=== PATIENT | male | born 1955 | race Caucasian/White ===

== ENCOUNTER 2016-09-27 09:29 | Inpatient (IN) | payer MEDICAID ==
[~2016-09-27] VITALS: Ht 188 cm; Wt 82.0 kg
[~2016-09-27 09:29] MED LIST: AMIO100T4 PO; AMIO200T42 PO; ASPI325T4 PO; ATOR80TA75 PO; Amiodarone Hcl PO; BACI28.33 EXTCORP; CEFU500T50 PO; DIGO125T PO; DOXY-168 BC; DOXY100T PO; FLUT1AER INH; FLUT1BLS INH; FURO20TA3 PO; LISI-167 PO; METO25TA35 PO; METO50TA82 PO; PRED-402 PO; RIVA20TA PO; STATIN PO
[2016-09-27] MEDS ORDERED: DILTIAZEM 5 MG/ML, 5ML IVPush STA (09:32)
[2016-09-27] MEDS ORDERED: DILTIAZEM 5 MG/ML, 5ML ONE ×2 (09:37→10:57)
[2016-09-27] MEDS ORDERED: AMIO400T4 PO (09:48)
[2016-09-27] MEDS ORDERED: ACETAMINOPHEN 500 MG TABLET ONE ×2 (09:48→10:16)
[2016-09-27] MEDS ORDERED: ASPIRIN 81 MG TABLET CHEW ONE ×2 (09:48→10:16)
[2016-09-27 10:00] LABS: DIFF TOTAL CELLS COUNTED 100 CELL DIFF
[2016-09-27] MEDS ORDERED: DILTIAZEM 125 MG in DEXTROSE 5% 100 ML IV SCH (10:00)
[2016-09-27] MEDS ORDERED: ACETAMINOPHEN 500 MG TABLET PO ONE (10:00)
[2016-09-27] MEDS ORDERED: SODIUM CHLORIDE FLUSH 10ML SYR IVF ONE (10:00)
[2016-09-27] MEDS ORDERED: ASPIRIN 81 MG TABLET CHEW PO ONE (10:00)
[2016-09-27 10:11] LABS: ASPARTATE AMINO TRANSFERASE 35 U/L (15-37); BLOOD UREA NITROGEN 10 mg/dL (7-18)
[2016-09-27 10:17] LABS: IS PT STATUS REG ER OR PRE ER? YES
[2016-09-27 10:23] LABS: ANISOCYTOSIS 1+; VERIFY COUNTS? YES
[2016-09-27] MEDS ORDERED: DILTIAZEM 5 MG/ML, 5ML IVPush ONE (11:00)
[2016-09-27] MEDS ORDERED: CEFTRIAXONE PMX 1GM/50ML 50 ML IV ONE ×2 (11:00→11:30)
[2016-09-27] MEDS ORDERED: CEFTRIAXONE PMX 1GM/50ML 50 ML ONE (11:14)
[2016-09-27] MEDS ORDERED: AMIODARONE 150 MG in DEXTROSE 5% 100 ML IV STA (11:24)
[2016-09-27] MEDS ORDERED: AMIODARONE 900 MG in DEXTROSE 5% 482 ML IV ONE (11:24)
[2016-09-27] MEDS ORDERED: SODIUM CHLORIDE 0.9% 1,000ML IVBOLUS ONE (11:30)
[2016-09-27] MEDS ORDERED: FILTER 0.22 MICRON IV ONE (11:30)
[2016-09-27] MEDS ORDERED: ENOXAPARIN 60 MG/0.6 ML ONE (11:50)
[2016-09-27] MEDS ORDERED: ENOXAPARIN 80 MG/0.8 ML SQ ONE (12:00)
[2016-09-27 15:16] VITALS: BP 101/67
[2016-09-27 15:18] VITALS: BP 101/67
[2016-09-27] MEDS ORDERED: DOCUSATE 100 MG CAPSULE PO PRN (17:30)
[2016-09-27] MEDS ORDERED: OXYcodone IR 5MG TABLET PO PRN (17:30)
[2016-09-27] MEDS ORDERED: BISACODYL 10 MG SUPP PR PRN (17:30)
[2016-09-27] MEDS ORDERED: ENALAPRILAT 1.25 MG/ML, 2ML IVPush PRN ×2 (17:30→17:58)
[2016-09-27] MEDS ORDERED: ONDANSETRON 2MG/ML, 2ML IVPush PRN (17:30)
[2016-09-27] MEDS ORDERED: morphine SULFATE 10 MG/ML, 1ML IVPush PRN (17:30)
[2016-09-27] MEDS ORDERED: POLYETHYLENE GLYCOL 17 GM PACKET PO PRN (17:30)
[2016-09-27] MEDS ORDERED: FLUTICASONE/VILANTEROL 200-25MCG/INH INH SCH (18:00)
[2016-09-27] MEDS: NICOTINE 7 MG/24 HR PATCH.TD24 TD SCH (18:09)
[2016-09-27] MEDS: FUROSEMIDE 20 MG/2 ML IV SCH (18:10)
[2016-09-27] MEDS: METOPROLOL TARTRATE 50 MG TABLET PO SCH ×2 (18:10→21:31)
[2016-09-27] MEDS: AMPICILLIN/SULBACTAM 3 GM in SODIUM CHLORIDE 0.9% 100 ML IV SCH ×2 (18:10→23:25)
[2016-09-27 20:23] VITALS: BP 99/59
[2016-09-27] MEDS: LISINOPRIL 10 MG TABLET PO SCH (21:30)
[2016-09-27] MEDS: HEPARIN 5,000 UNITS/ML, 1ML SQ SCH (21:32)
[2016-09-27] MEDS: ATORVASTATIN 80 MG TABLET PO SCH (21:32)
[2016-09-28 03:22] VITALS: BP 94/59
[2016-09-28 06:01] LABS: DIFF TOTAL CELLS COUNTED 100 CELL DIFF
[2016-09-28 06:03] LABS: ANISOCYTOSIS 1+; VERIFY COUNTS? YES
[2016-09-28] MEDS: HEPARIN 5,000 UNITS/ML, 1ML SQ SCH ×3 (06:15→21:12)
[2016-09-28] MEDS: ASPIRIN 325 MG TABLET PO SCH (06:15)
[2016-09-28] MEDS: AMPICILLIN/SULBACTAM 3 GM in SODIUM CHLORIDE 0.9% 100 ML IV SCH ×4 (06:15→23:10)
[2016-09-28 06:36] LABS: BLOOD UREA NITROGEN 13 mg/dL (7-18)
[2016-09-28 06:39] LABS: ASPARTATE AMINO TRANSFERASE 26 U/L (15-37)
[2016-09-28 07:10] VITALS: BP 122/72
[2016-09-28] MEDS ORDERED: POTASSIUM CHLORIDE 20 MEQ TAB.ER.PRT PO ONE (08:30)
[2016-09-28] MEDS: FUROSEMIDE 20 MG/2 ML IV SCH (08:54)
[2016-09-28] MEDS: DEXAMETHASONE 4 MG/ML, 1ML IV SCH ×3 (08:54→21:12)
[2016-09-28] MEDS: DIGOXIN 0.125 MG TABLET PO SCH (08:55)
[2016-09-28] MEDS: METOPROLOL TARTRATE 50 MG TABLET PO SCH ×3 (08:55→21:11)
[2016-09-28] MEDS: LISINOPRIL 10 MG TABLET PO SCH ×2 (08:55→21:11)
[2016-09-28] MEDS: MAGNESIUM CHLORIDE 64 MG TABLET.DR PO SCH (12:38)
[2016-09-28 12:55] VITALS: BP 121/74
[2016-09-28] MEDS: FLUTICASONE/VILANTEROL 100-25MCG/INH INH SCH (14:41)
[2016-09-28] MEDS: NICOTINE 7 MG/24 HR PATCH.TD24 TD SCH (16:14)
[2016-09-28] MEDS: POTASSIUM CHLORIDE 20 MEQ TAB.ER.PRT PO SCH (16:31)
[2016-09-28 20:25] VITALS: BP 143/75
[2016-09-28 20:54] VITALS: BP 130/68
[2016-09-28] MEDS: ATORVASTATIN 80 MG TABLET PO SCH (21:11)
[2016-09-29 02:48] VITALS: BP 143/88
[2016-09-29] MEDS: ASPIRIN 325 MG TABLET PO SCH (05:27)
[2016-09-29] MEDS: HEPARIN 5,000 UNITS/ML, 1ML SQ SCH ×3 (05:28→21:55)
[2016-09-29] MEDS: AMPICILLIN/SULBACTAM 3 GM in SODIUM CHLORIDE 0.9% 100 ML IV SCH ×4 (05:28→22:07)
[2016-09-29 06:52] VITALS: BP 154/93
[2016-09-29] MEDS: FLUTICASONE/VILANTEROL 100-25MCG/INH INH SCH (07:41)
[2016-09-29] MEDS: DIGOXIN 0.125 MG TABLET PO SCH (07:42)
[2016-09-29] MEDS: METOPROLOL TARTRATE 50 MG TABLET PO SCH ×3 (07:42→21:53)
[2016-09-29] MEDS: LISINOPRIL 10 MG TABLET PO SCH ×2 (07:42→21:53)
[2016-09-29] MEDS: MAGNESIUM CHLORIDE 64 MG TABLET.DR PO SCH (07:42)
[2016-09-29] MEDS: FUROSEMIDE 20 MG/2 ML IV SCH (07:43)
[2016-09-29] MEDS ORDERED: ERGOCALCIFEROL 50,000 UNIT CAPSULE PO SCH (09:00)
[2016-09-29 14:15] VITALS: BP 104/68
[2016-09-29] MEDS: NICOTINE 7 MG/24 HR PATCH.TD24 TD SCH (16:59)
[2016-09-29] MEDS: POTASSIUM CHLORIDE 20 MEQ TAB.ER.PRT PO SCH (16:59)
[2016-09-29 18:47] VITALS: BP 134/71
[2016-09-29 21:50] VITALS: BP 128/84
[2016-09-29] MEDS: ATORVASTATIN 80 MG TABLET PO SCH (21:52)
[2016-09-30 02:11] VITALS: BP 156/89
[2016-09-30 05:57] LABS: BLOOD UREA NITROGEN 17 mg/dL (7-18)
[2016-09-30] MEDS: ASPIRIN 325 MG TABLET PO SCH (06:12)
[2016-09-30] MEDS: AMPICILLIN/SULBACTAM 3 GM in SODIUM CHLORIDE 0.9% 100 ML IV SCH ×4 (06:12→23:12)
[2016-09-30] MEDS: HEPARIN 5,000 UNITS/ML, 1ML SQ SCH ×3 (06:12→23:12)
[2016-09-30 09:17] VITALS: BP 159/82
[2016-09-30] MEDS: FUROSEMIDE 20 MG/2 ML IV SCH (09:31)
[2016-09-30] MEDS: MAGNESIUM CHLORIDE 64 MG TABLET.DR PO SCH (09:32)
[2016-09-30] MEDS: FLUTICASONE/VILANTEROL 100-25MCG/INH INH SCH (09:32)
[2016-09-30] MEDS: LISINOPRIL 10 MG TABLET PO SCH ×2 (09:33→20:12)
[2016-09-30] MEDS: DIGOXIN 0.125 MG TABLET PO SCH (09:33)
[2016-09-30] MEDS: METOPROLOL TARTRATE 50 MG TABLET PO SCH ×3 (09:37→20:13)
[2016-09-30] MEDS ORDERED: MAGNESIUM SULFATE PMX 2GM/50ML 50 ML IV ONE (11:00)
[2016-09-30 13:42] VITALS: BP 132/89
[2016-09-30 17:15] VITALS: BP 150/84
[2016-09-30] MEDS: POTASSIUM CHLORIDE 20 MEQ TAB.ER.PRT PO SCH (17:16)
[2016-09-30] MEDS: NICOTINE 7 MG/24 HR PATCH.TD24 TD SCH (17:18)
[2016-09-30 20:00] VITALS: BP 135/96
[2016-09-30] MEDS: ATORVASTATIN 80 MG TABLET PO SCH (20:12)
[2016-10-01] VITALS (8 sets, daily range): BP systolic 136–174; BP diastolic 94–105
[2016-10-01] MEDS: hydrALAzine 20 MG/ML, 1ML IVPush PRN (04:05)
[2016-10-01] MEDS: ASPIRIN 325 MG TABLET PO SCH (05:22)
[2016-10-01] MEDS: HEPARIN 5,000 UNITS/ML, 1ML SQ SCH ×3 (05:22→20:36)
[2016-10-01] MEDS: AMPICILLIN/SULBACTAM 3 GM in SODIUM CHLORIDE 0.9% 100 ML IV SCH ×4 (05:22→23:44)
[2016-10-01 05:56] LABS: BLOOD UREA NITROGEN 18 mg/dL (7-18)
[2016-10-01] MEDS: FUROSEMIDE 20 MG/2 ML IV SCH (07:14)
[2016-10-01] MEDS: FLUTICASONE/VILANTEROL 100-25MCG/INH INH SCH (07:15)
[2016-10-01] MEDS: MAGNESIUM CHLORIDE 64 MG TABLET.DR PO SCH ×4 (07:16→20:36)
[2016-10-01] MEDS: METOPROLOL TARTRATE 50 MG TABLET PO SCH ×3 (07:16→20:35)
[2016-10-01] MEDS: LISINOPRIL 10 MG TABLET PO SCH ×2 (07:17→20:35)
[2016-10-01] MEDS: DIGOXIN 0.125 MG TABLET PO SCH (07:17)
[2016-10-01] MEDS: AMIODARONE 200 MG TABLET PO SCH (10:09)
[2016-10-01] MEDS: NICOTINE 7 MG/24 HR PATCH.TD24 TD SCH (17:09)
[2016-10-01] MEDS: POTASSIUM CHLORIDE 20 MEQ TAB.ER.PRT PO SCH (17:10)
[2016-10-01] MEDS: ATORVASTATIN 80 MG TABLET PO SCH (20:36)
[2016-10-01] MEDS: ACETAMINOPHEN 325 MG TABLET PO PRN (23:58)
[2016-10-02 00:54] VITALS: BP 189/99
[2016-10-02] MEDS: hydrALAzine 20 MG/ML, 1ML IVPush PRN (01:03)
[2016-10-02 01:37] VITALS: BP 160/73
[2016-10-02] MEDS: ASPIRIN 325 MG TABLET PO SCH (05:52)
[2016-10-02] MEDS: HEPARIN 5,000 UNITS/ML, 1ML SQ SCH ×2 (05:53→14:00)
[2016-10-02] MEDS: AMPICILLIN/SULBACTAM 3 GM in SODIUM CHLORIDE 0.9% 100 ML IV SCH ×2 (05:53→11:38)
[2016-10-02] MEDS: ACETAMINOPHEN 325 MG TABLET PO PRN (07:05)
[2016-10-02 07:20] VITALS: BP_SYST 164; BP_SYST 176; BP_DIAS 107; BP_DIAS 112
[2016-10-02] MEDS: FLUTICASONE/VILANTEROL 100-25MCG/INH INH SCH (07:51)
[2016-10-02] MEDS: FUROSEMIDE 20 MG/2 ML IV SCH (07:51)
[2016-10-02] MEDS: LISINOPRIL 10 MG TABLET PO SCH (07:51)
[2016-10-02] MEDS: AMIODARONE 200 MG TABLET PO SCH (07:51)
[2016-10-02] MEDS: METOPROLOL TARTRATE 50 MG TABLET PO SCH (07:51)
[2016-10-02] MEDS: MAGNESIUM CHLORIDE 64 MG TABLET.DR PO SCH (07:51)
[2016-10-02] MEDS: DIGOXIN 0.125 MG TABLET PO SCH (07:52)
[2016-10-02 14:14] VITALS: BP 146/86
[2016-10-02] MEDS ORDERED: ERGO500017 PO (14:29)
[2016-10-02] MEDS ORDERED: LISI-170 PO (14:29)
[2016-10-02] MEDS ORDERED: AMOX1TAB64 PO (14:29)
[2016-10-02] MEDS ORDERED: POTA20TA14 PO (14:29)
[2016-10-02] MEDS ORDERED: FURO40TA6 PO (14:29)
[2016-10-02] MEDS ORDERED: MAGN64TA9 PO (14:29)
[2016-10-02] MEDS ORDERED: LISINOPRIL 20 MG TABLET PO SCH (21:00)
== END 2016-10-02 15:55 | disposition home or self-care (01) | DRG 308 ==
LOC: ED 12:30 → EDIP 14:07 → 5SO 15:04
PROVIDERS: ADMIT Hospitalist; ATTEND Hospitalist
DX: I48.2 Chronic atrial fibrillation (principal); I50.33 Acute on chronic diastolic (congestive) heart failure; D68.69 Other thrombophilia; L03.116 Cellulitis of left lower limb; I11.0 Hypertensive heart disease with heart failure; F17.210 Nicotine dependence, cigarettes, uncomplicated; J44.9 Chronic obstructive pulmonary disease, unspecified; Z59.0 Homelessness; Z91.14 Patient's other noncompliance with medication regimen; Z91.19 Patient's noncompliance with other medical treatment and regimen; Z79.82 Long term (current) use of aspirin; Z79.899 Other long term (current) drug therapy; Z88.8 Allergy status to other drugs, medicaments and biological substances; Z71.6 Tobacco abuse counseling
CPT/HCPCS: 36415; 71010; 76700; 80048; 80053; 80061; 80162; 81001; 82306; 82607; 83036; 83605; 83735; 83880; 84439; 84443; 84484; 85025; 85610; 87040; 93005; 93922; 96365; 96366; 96372; 96375; J0295; J0696; J1100; J1644; J1650; J0360; J1940; J3475; J7030

== ENCOUNTER 2017-03-02 13:03 | Inpatient (IN) | payer MEDICAID ==
[~2017-03-02] VITALS: Ht 188 cm; Wt 79.9 kg
[~2017-03-02 13:03] MED LIST changes: +AMIO400T4 PO; +AMOX1TAB64 PO; +ASPI325T17 PO; -ASPI325T4 PO; +ATOR-2 PO; -ATOR80TA75 PO; -DOXY-168 BC; +DOXY100T10 BC; +ERGO500017 PO; +FURO40TA6 PO; +LISI-170 PO; +MAGN64TA9 PO; +POTA20TA14 PO
[2017-03-02] MEDS ORDERED: DILTIAZEM 5 MG/ML, 5ML ONE (13:46)
[2017-03-02] MEDS ORDERED: DILTIAZEM 5 MG/ML, 5ML IV ONE (14:00)
[2017-03-02] MEDS ORDERED: SODIUM CHLORIDE FLUSH 10ML SYR IVF ONE (14:00)
[2017-03-02 14:11] LABS: HEMATOCRIT 40.6 % (39.2-51.8); WHITE BLOOD COUNT 9.7 x10^3/uL (3.4-10)
[2017-03-02 14:20] LABS: ASPARTATE AMINO TRANSFERASE 44 U/L (15-37); BLOOD UREA NITROGEN 13 mg/dL (7-18)
[2017-03-02 14:32] LABS: IS PT STATUS REG ER OR PRE ER? YES
[2017-03-02] MEDS ORDERED: DIGOXIN 0.25 MG/ML, 2ML IVPush ONE (16:00)
[2017-03-02] MEDS ORDERED: DIGOXIN 0.25 MG/ML, 2ML ONE (16:09)
[2017-03-02] MEDS ORDERED: CARV-39 PO (16:27)
[2017-03-02] MEDS ORDERED: DIGO250T PO (16:27)
[2017-03-02] MEDS ORDERED: LISI-167 PO (16:27)
[2017-03-02] MEDS ORDERED: ALBU18HF INH (16:27)
[2017-03-02] MEDS ORDERED: ATOR-2 PO (16:27)
[2017-03-02] MEDS ORDERED: POTA20TA14 PO (16:27)
[2017-03-02] MEDS ORDERED: FLUT1BLS INH (16:27)
[2017-03-02] MEDS ORDERED: MAGN400T7 PO (16:27)
[2017-03-02] MEDS ORDERED: WARF5TAB7 PO (16:27)
[2017-03-02] MEDS ORDERED: FURO20TA3 PO (16:27)
[2017-03-02] MEDS ORDERED: SPIR25TA3 PO (16:27)
[2017-03-02] MEDS ORDERED: ALBUTEROL SULFATE 2.5 MG/3 ML NPPB PRN (17:00)
[2017-03-02] MEDS ORDERED: POTASSIUM CHLORIDE 20 MEQ TAB.ER.PRT PO ONE (17:00)
[2017-03-02] MEDS ORDERED: DOCUSATE 100 MG CAPSULE PO PRN (17:00)
[2017-03-02] MEDS ORDERED: ENALAPRILAT 1.25 MG/ML, 2ML IVPush PRN (17:00)
[2017-03-02] MEDS ORDERED: ALBUTEROL HFA 90 MCG/SPRAY INH PRN (17:00)
[2017-03-02] MEDS ORDERED: POLYETHYLENE GLYCOL 17 GM PACKET PO PRN (17:00)
[2017-03-02] MEDS ORDERED: HYDROcodone/APAP 5/325 TABLET PO PRN (17:00)
[2017-03-02] MEDS ORDERED: ONDANSETRON 2MG/ML, 2ML IVPush PRN (17:00)
[2017-03-02] MEDS ORDERED: ACETAMINOPHEN 325 MG TABLET PO PRN (17:00)
[2017-03-02] MEDS ORDERED: BISACODYL 10 MG SUPP PR PRN (17:00)
[2017-03-02 18:25] VITALS: BP 189/115
[2017-03-02] MEDS ORDERED: WARFARIN 7.5 MG TABLET PO-COUM ONE (18:30)
[2017-03-02] MEDS: FUROSEMIDE 40 MG/4 ML IV SCH (18:45)
[2017-03-02] MEDS: ATORVASTATIN 80 MG TABLET PO SCH (20:46)
[2017-03-02] MEDS: MAGNESIUM OXIDE 400 MG TABLET PO SCH (20:46)
[2017-03-02] MEDS: DILTIAZEM 125 MG in SODIUM CHLORIDE 0.9% 100 ML IV PRN (20:49)
[2017-03-02] MEDS: FLUTICASONE/VILANTEROL 200-25MCG/INH INH SCH (21:00)
[2017-03-02] MEDS: SODIUM CHLORIDE FLUSH 10ML SYR IVF SCH (21:00)
[2017-03-03 02:26] VITALS: BP 145/87
[2017-03-03 04:57] LABS: HEMATOCRIT 39.2 % (39.2-51.8); HEMOGLOBIN 12.9 g/dL (13.7-18.0); WHITE BLOOD COUNT 8.9 x10^3/uL (3.4-10)
[2017-03-03 05:19] LABS: ASPARTATE AMINO TRANSFERASE 37 U/L (15-37); BLOOD UREA NITROGEN 7 mg/dL (7-18)
[2017-03-03 06:34] VITALS: BP 146/86
[2017-03-03] MEDS: FUROSEMIDE 40 MG/4 ML IV SCH ×2 (08:42→17:07)
[2017-03-03] MEDS: SODIUM CHLORIDE FLUSH 10ML SYR IVF SCH ×2 (08:42→21:40)
[2017-03-03] MEDS: THIAMINE 100MG TABLET PO SCH (08:43)
[2017-03-03] MEDS: MAGNESIUM OXIDE 400 MG TABLET PO SCH ×2 (08:43→21:40)
[2017-03-03] MEDS: FOLIC ACID 1 MG TABLET PO SCH (08:43)
[2017-03-03] MEDS: MULTIVITAMIN 1 TABLET PO SCH (08:43)
[2017-03-03] MEDS: DIGOXIN 0.25 MG TABLET PO SCH (08:43)
[2017-03-03] MEDS: FLUTICASONE/VILANTEROL 200-25MCG/INH INH SCH ×2 (08:44→21:00)
[2017-03-03] MEDS ORDERED: CARVEDILOL 25 MG TABLET PO SCH (09:00)
[2017-03-03] MEDS ORDERED: SPIRONOLACTONE 25 MG TABLET PO SCH (09:00)
[2017-03-03] MEDS ORDERED: LISINOPRIL 10 MG TABLET PO SCH (09:00)
[2017-03-03 11:55] VITALS: BP 90/57
[2017-03-03 15:00] VITALS: BP 110/60
[2017-03-03] MEDS ORDERED: WARFARIN 7.5 MG TABLET PO-COUM ONE (18:00)
[2017-03-03] MEDS: DILTIAZEM 125 MG in SODIUM CHLORIDE 0.9% 100 ML IV PRN (18:46)
[2017-03-03 20:05] VITALS: BP 99/62
[2017-03-03] MEDS: DILTIAZEM 120 MG CAP.ER.12H PO SCH (21:40)
[2017-03-03] MEDS: ATORVASTATIN 80 MG TABLET PO SCH (21:40)
[2017-03-04 03:27] VITALS: BP 136/81
[2017-03-04 07:19] VITALS: BP 123/74
[2017-03-04] MEDS: MULTIVITAMIN 1 TABLET PO SCH (08:36)
[2017-03-04] MEDS: FUROSEMIDE 40 MG/4 ML IV SCH ×2 (08:36→16:50)
[2017-03-04] MEDS: SODIUM CHLORIDE FLUSH 10ML SYR IVF SCH ×2 (08:36→21:20)
[2017-03-04] MEDS: THIAMINE 100MG TABLET PO SCH (08:36)
[2017-03-04] MEDS: CARVEDILOL 25 MG TABLET PO SCH (08:37)
[2017-03-04] MEDS: MAGNESIUM OXIDE 400 MG TABLET PO SCH ×2 (08:37→21:20)
[2017-03-04] MEDS: DIGOXIN 0.25 MG TABLET PO SCH (08:37)
[2017-03-04] MEDS: FOLIC ACID 1 MG TABLET PO SCH (08:37)
[2017-03-04] MEDS: LISINOPRIL 10 MG TABLET PO SCH (08:37)
[2017-03-04] MEDS: DILTIAZEM 120 MG CAP.ER.12H PO SCH ×2 (08:38→21:20)
[2017-03-04] MEDS: FLUTICASONE/VILANTEROL 200-25MCG/INH INH SCH ×2 (09:00→21:19)
[2017-03-04 10:00] VITALS: BP 90/52
[2017-03-04] MEDS: SPIRONOLACTONE 25 MG TABLET PO SCH (10:00)
[2017-03-04 12:47] VITALS: BP 93/59
[2017-03-04] MEDS ORDERED: WARFARIN 7.5 MG TABLET PO-COUM ONE (18:00)
[2017-03-04 20:00] VITALS: BP 94/56
[2017-03-04] MEDS: ATORVASTATIN 80 MG TABLET PO SCH (21:20)
[2017-03-05 03:10] VITALS: BP 98/63
[2017-03-05 07:38] VITALS: BP 98/59
[2017-03-05] MEDS: SODIUM CHLORIDE FLUSH 10ML SYR IVF SCH ×2 (09:00→21:57)
[2017-03-05] MEDS: FLUTICASONE/VILANTEROL 200-25MCG/INH INH SCH ×3 (09:00→21:56)
[2017-03-05] MEDS ORDERED: MAGNESIUM SULFATE PMX 4GM/100M 100 ML IV ONE (10:00)
[2017-03-05] MEDS: SPIRONOLACTONE 25 MG TABLET PO SCH (10:11)
[2017-03-05] MEDS: MULTIVITAMIN 1 TABLET PO SCH (10:12)
[2017-03-05] MEDS: FOLIC ACID 1 MG TABLET PO SCH (10:12)
[2017-03-05] MEDS: LISINOPRIL 10 MG TABLET PO SCH (10:12)
[2017-03-05] MEDS: MAGNESIUM OXIDE 400 MG TABLET PO SCH ×2 (10:12→21:56)
[2017-03-05] MEDS: CARVEDILOL 25 MG TABLET PO SCH (10:12)
[2017-03-05] MEDS: DIGOXIN 0.25 MG TABLET PO SCH (10:12)
[2017-03-05] MEDS: THIAMINE 100MG TABLET PO SCH (10:12)
[2017-03-05 10:16] VITALS: BP 124/87
[2017-03-05] MEDS ORDERED: ENALAPRILAT 1.25 MG/ML, 2ML IVPush PRN (11:00)
[2017-03-05 13:47] VITALS: BP 92/56
[2017-03-05] MEDS ORDERED: FUROSEMIDE 20 MG TABLET PO SCH (17:00)
[2017-03-05] MEDS ORDERED: WARFARIN 10 MG TABLET PO-COUM ONE (18:00)
[2017-03-05 20:30] VITALS: BP 117/69
[2017-03-05] MEDS: ATORVASTATIN 80 MG TABLET PO SCH (21:56)
[2017-03-06 02:57] VITALS: BP 115/79
[2017-03-06 08:13] VITALS: BP 123/84
[2017-03-06] MEDS: FLUTICASONE/VILANTEROL 200-25MCG/INH INH SCH ×2 (09:00→09:42)
[2017-03-06] MEDS ORDERED: DOXY100T PO (09:38)
[2017-03-06] MEDS: MULTIVITAMIN 1 TABLET PO SCH (09:41)
[2017-03-06] MEDS: MAGNESIUM OXIDE 400 MG TABLET PO SCH (09:41)
[2017-03-06] MEDS: CARVEDILOL 25 MG TABLET PO SCH (09:42)
[2017-03-06] MEDS: THIAMINE 100MG TABLET PO SCH (09:42)
[2017-03-06] MEDS: DIGOXIN 0.25 MG TABLET PO SCH (09:42)
[2017-03-06] MEDS: LISINOPRIL 10 MG TABLET PO SCH (09:42)
[2017-03-06] MEDS: FOLIC ACID 1 MG TABLET PO SCH (09:42)
[2017-03-06] MEDS: SPIRONOLACTONE 25 MG TABLET PO SCH (09:42)
[2017-03-06] MEDS: SODIUM CHLORIDE FLUSH 10ML SYR IVF SCH (09:43)
[2017-03-06 12:30] VITALS: BP 106/71
[2017-03-06] MEDS ORDERED: WARFARIN 10 MG TABLET PO-COUM ONE (18:00)
== END 2017-03-06 15:57 | disposition home or self-care (01) | DRG 292 ==
LOC: ED 16:31 → EDIP 16:32 → ED 17:04 → 5SO 18:18
PROVIDERS: ADMIT Internal Medicine; ATTEND Internal Medicine
DX: I11.0 Hypertensive heart disease with heart failure (principal); E44.0 Moderate protein-calorie malnutrition; D68.69 Other thrombophilia; R17 Unspecified jaundice; D53.9 Nutritional anemia, unspecified; I48.2 Chronic atrial fibrillation; I50.33 Acute on chronic diastolic (congestive) heart failure; E78.5 Hyperlipidemia, unspecified; F41.1 Generalized anxiety disorder; Z68.22 Body mass index [BMI] 22.0-22.9, adult; J44.9 Chronic obstructive pulmonary disease, unspecified; R09.02 Hypoxemia; Z59.0 Homelessness; Z87.891 Personal history of nicotine dependence; Z91.14 Patient's other noncompliance with medication regimen; Z91.19 Patient's noncompliance with other medical treatment and regimen
CPT/HCPCS: 36415; 71010; 71020; 80053; 80162; 83735; 83880; 84443; 84484; 85025; 85610; 85730; 93005; 96374; 96375; J1940; J1160; J3475

== ENCOUNTER 2017-05-09 13:58 | Emergency (ER) | payer MEDICAID ==
[~2017-05-09] VITALS: Ht 185.4 cm; Wt 83.1 kg
[~2017-05-09 13:58] MED LIST changes: +ALBU18HF INH; -AMIO400T4 PO; +AMIO400T5 PO; +CARV-39 PO; +DIGO250T PO; +MAGN400T7 PO; +SPIR25TA3 PO; +WARF5TAB7 PO
[2017-05-09] MEDS ORDERED: ALBUTEROL/IPRATROPIUM 2.5MG/0.5MG, 3 ML NPPB ONE (16:30)
[2017-05-09] MEDS ORDERED: ALBUTEROL/IPRATROPIUM 2.5MG/0.5MG, 3 ML ONE (17:23)
[2017-05-09 17:50] VITALS: BP 141/89
== END 2017-05-09 17:56 | disposition home or self-care (01) ==
LOC: ED 17:07
DX: J44.1 Chronic obstructive pulmonary disease with (acute) exacerbation (principal); I48.91 Unspecified atrial fibrillation; E78.5 Hyperlipidemia, unspecified; F17.200 Nicotine dependence, unspecified, uncomplicated
CPT/HCPCS: 71046; 93005; 94640; 99284; J7512

== ENCOUNTER 2017-05-10 12:00 | Inpatient (IN) | payer MEDICAID ==
[~2017-05-10] VITALS: Ht 185.4 cm; Wt 84.6 kg
[2017-05-10] MEDS ORDERED: DILTIAZEM 5 MG/ML, 5ML IV ONE (12:30)
[2017-05-10] MEDS ORDERED: SODIUM CHLORIDE 0.9% 1,000ML IVBOLUS ONE (12:30)
[2017-05-10] MEDS ORDERED: SODIUM CHLORIDE FLUSH 10ML SYR IVF ONE (12:30)
[2017-05-10] MEDS ORDERED: DILTIAZEM 5 MG/ML, 5ML ONE (12:48)
[2017-05-10 12:50] LABS: BASOPHILS # (AUTO) 0.03 x10^3/uL (0-0.1); BASOPHILS % (AUTO) 0 % (0-1); EOSINOPHILS # (AUTO) 0.02 x10^3/uL (0-0.4); EOSINOPHILS % (AUTO) 0 % (1-7); LYMPHOCYTES # (AUTO) 1.75 x10^3/uL (1-3.4); LYMPHOCYTES % (AUTO) 12 % (22-44); MD NO; MEAN CORPUSCULAR HEMOGLOBIN 32.1 pg (27.5-34.5); MEAN CORPUSCULAR HGB CONC 32.7 g/dL (33.2-36.2); MEAN PLATELET VOLUME 7.8 fL (7.4-10.4); MONOCYTES # (AUTO) 1.03 x10^3/uL (0.2-0.8); MONOCYTES % (AUTO) 7 % (2-9); NEUTROPHILS # (AUTO) 11.73 x10^3/uL (1.8-6.8); NEUTROPHILS % (AUTO) 81 % (42-75); PLATELET COUNT 308 x10^3/uL (130-400); RED BLOOD COUNT 4.12 x10^6/uL (4.38-5.82); RED CELL DISTRIBUTION WIDTH 16.5 % (9.4-14.8)
[2017-05-10 13:02] LABS: ALANINE AMINOTRANSFERASE 93 U/L (12-78); ALBUMIN 3.5 g/dL (3.4-5.0); ANION GAP 8 mmol/L (5-15); CALCIUM 8.9 mg/dL (8.5-10.1); CHLORIDE 105 mmol/L (98-107); CREATININE 0.77 mg/dL (0.7-1.3); INTERNATIONAL NORMALIZED RATIO 1.19 (0.93-1.1); PROTHROMBIN TIME 12.2 Seconds (9.6-11.5)
[2017-05-10 13:07] LABS: ALKALINE PHOSPHATASE 159 U/L (45-117); BILIRUBIN,TOTAL 0.7 mg/dL (0.2-1.0); TOTAL PROTEIN 7.1 g/dL (6.4-8.2); TROPONIN I < 0.015 ng/mL (0.000-0.045)
[2017-05-10] MEDS ORDERED: DILTIAZEM 60 MG TABLET ONE (14:29)
[2017-05-10] MEDS ORDERED: DILTIAZEM 60 MG TABLET PO ONE (14:30)
[2017-05-10] MEDS ORDERED: ALBUTEROL/IPRATROPIUM 2.5MG/0.5MG, 3 ML ONE ×2 (15:28→21:20)
[2017-05-10] MEDS ORDERED: POLYETHYLENE GLYCOL 17 GM PACKET PO PRN (15:30)
[2017-05-10] MEDS ORDERED: TEMPLATE NON-FORMULARY MED. (Albuterol Sulfate (Ventolin Hfa) 2 PUFFS) INH PRN (15:30)
[2017-05-10] MEDS ORDERED: ONDANSETRON 2MG/ML, 2ML IVPush PRN (15:30)
[2017-05-10] MEDS ORDERED: ONDANSETRON ODT 4 MG PO PRN (15:30)
[2017-05-10] MEDS ORDERED: morphine SULFATE 10 MG/ML, 1ML IVPush PRN (15:30)
[2017-05-10] MEDS ORDERED: LABETALOL 5MG/ML, 20ML IVPush PRN (15:30)
[2017-05-10 15:36] VITALS: BP 112/76
[2017-05-10 15:50] LABS: FREE T4 (FREE THYROXINE) 1.18 ng/dL (0.76-1.46); TROPONIN I < 0.015 ng/mL (0.000-0.045)
[2017-05-10] MEDS: ALBUTEROL/IPRATROPIUM 2.5MG/0.5MG, 3 ML NPPB PRN ×2 (15:55→21:22)
[2017-05-10] MEDS: SODIUM CHLORIDE 0.9% 1,000 ML IV SCH (16:19)
[2017-05-10] MEDS: AZITHROMYCIN 500 MG in SODIUM CHLORIDE 0.9% 250 ML IV SCH (16:19)
[2017-05-10] MEDS ORDERED: MAGNESIUM SULFATE PMX 4GM/100M 100 ML IV ONE (18:30)
[2017-05-10] MEDS ORDERED: ERGOCALCIFEROL 50,000 UNIT CAPSULE PO SCH (18:30)
[2017-05-10 18:56] VITALS: BP 109/59
[2017-05-10] MEDS ORDERED: WARFARIN 7.5 MG TABLET PO-COUM ONE (19:30)
[2017-05-10] MEDS: CARVEDILOL 25 MG TABLET PO SCH (20:45)
[2017-05-10] MEDS: ATORVASTATIN 80 MG TABLET PO SCH (20:45)
[2017-05-11 00:54] VITALS: BP 108/67
[2017-05-11 05:37] LABS: INTERNATIONAL NORMALIZED RATIO 1.24 (0.93-1.1); PROTHROMBIN TIME 12.7 Seconds (9.6-11.5)
[2017-05-11 05:38] LABS: BASOPHILS # (AUTO) 0.05 x10^3/uL (0-0.1); BASOPHILS % (AUTO) 1 % (0-1); EOSINOPHILS % (AUTO) 0 % (1-7); LYMPHOCYTES # (AUTO) 1.04 x10^3/uL (1-3.4); LYMPHOCYTES % (AUTO) 9 % (22-44); MD NO; MEAN CORPUSCULAR HEMOGLOBIN 32.1 pg (27.5-34.5); MEAN CORPUSCULAR HGB CONC 32.7 g/dL (33.2-36.2); MEAN CORPUSCULAR VOLUME 98.3 fL (81-97); MEAN PLATELET VOLUME 7.7 fL (7.4-10.4); MONOCYTES # (AUTO) 0.65 x10^3/uL (0.2-0.8); MONOCYTES % (AUTO) 6 % (2-9); NEUTROPHILS # (AUTO) 9.89 x10^3/uL (1.8-6.8); NEUTROPHILS % (AUTO) 85 % (42-75); PLATELET COUNT 273 x10^3/uL (130-400); RED BLOOD COUNT 3.86 x10^6/uL (4.38-5.82); RED CELL DISTRIBUTION WIDTH 16.7 % (9.4-14.8)
[2017-05-11 05:46] LABS: CHLORIDE 109 mmol/L (98-107)
[2017-05-11 05:55] LABS: ALANINE AMINOTRANSFERASE 81 U/L (12-78); ALBUMIN 3.2 g/dL (3.4-5.0); ALKALINE PHOSPHATASE 143 U/L (45-117); ANION GAP 7 mmol/L (5-15); BILIRUBIN,TOTAL 0.6 mg/dL (0.2-1.0); CALCIUM 8.2 mg/dL (8.5-10.1); CREATININE 0.69 mg/dL (0.7-1.3); TOTAL PROTEIN 6.9 g/dL (6.4-8.2)
[2017-05-11 06:18] LABS: MICROSCOPIC NOT IND
[2017-05-11 06:20] LABS: CULTURE INDICATED? NO
[2017-05-11 07:42] VITALS: BP 146/84
[2017-05-11] MEDS: SODIUM CHLORIDE 0.9% 1,000 ML IV SCH (08:00)
[2017-05-11] MEDS ORDERED: CARVEDILOL 25 MG TABLET PO SCH (09:00)
[2017-05-11] MEDS ORDERED: SPIRONOLACTONE 25 MG TABLET PO SCH (09:00)
[2017-05-11] MEDS ORDERED: LISINOPRIL 10 MG TABLET ONE (09:37)
[2017-05-11] MEDS ORDERED: SENNA/DOCUSATE TABLET ONE (09:37)
[2017-05-11] MEDS: THIAMINE 100MG TABLET PO SCH (09:42)
[2017-05-11] MEDS: FOLIC ACID 1 MG TABLET PO SCH (09:42)
[2017-05-11] MEDS: CARVEDILOL 25 MG TABLET PO SCH ×2 (09:42→21:05)
[2017-05-11] MEDS: DIGOXIN 0.25 MG TABLET PO SCH (09:42)
[2017-05-11] MEDS: SENNA/DOCUSATE TABLET PO SCH (09:42)
[2017-05-11] MEDS: LISINOPRIL 10 MG TABLET PO SCH (09:43)
[2017-05-11] MEDS: ALBUTEROL/IPRATROPIUM 2.5MG/0.5MG, 3 ML NPPB PRN ×2 (10:10→19:51)
[2017-05-11] MEDS ORDERED: ALBUTEROL/IPRATROPIUM 2.5MG/0.5MG, 3 ML ONE ×2 (10:11→19:35)
[2017-05-11 12:35] VITALS: BP 155/97
[2017-05-11] MEDS: AZITHROMYCIN 500 MG in SODIUM CHLORIDE 0.9% 250 ML IV SCH (15:44)
[2017-05-11] MEDS ORDERED: WARFARIN 7.5 MG TABLET PO-COUM ONE (18:00)
[2017-05-11 19:15] VITALS: BP 128/94
[2017-05-11] MEDS: ATORVASTATIN 80 MG TABLET PO SCH (21:04)
[2017-05-12 00:32] VITALS: BP 151/90
[2017-05-12] MEDS: ASPIRIN 81 MG TABLET EC PO SCH (06:02)
[2017-05-12 07:35] LABS: BASOPHILS # (AUTO) 0.09 x10^3/uL (0-0.1); BASOPHILS % (AUTO) 1 % (0-1); EOSINOPHILS # (AUTO) 0.07 x10^3/uL (0-0.4); EOSINOPHILS % (AUTO) 1 % (1-7); LYMPHOCYTES # (AUTO) 2.06 x10^3/uL (1-3.4); LYMPHOCYTES % (AUTO) 17 % (22-44); MD NO; MEAN CORPUSCULAR HEMOGLOBIN 32.2 pg (27.5-34.5); MEAN CORPUSCULAR HGB CONC 32.9 g/dL (33.2-36.2); MEAN CORPUSCULAR VOLUME 98.1 fL (81-97); MONOCYTES # (AUTO) 0.75 x10^3/uL (0.2-0.8); MONOCYTES % (AUTO) 6 % (2-9); NEUTROPHILS # (AUTO) 9.04 x10^3/uL (1.8-6.8); NEUTROPHILS % (AUTO) 75 % (42-75); PLATELET COUNT 286 x10^3/uL (130-400); RED BLOOD COUNT 4.17 x10^6/uL (4.38-5.82); RED CELL DISTRIBUTION WIDTH 16.6 % (9.4-14.8)
[2017-05-12 07:43] LABS: ALBUMIN 3.4 g/dL (3.4-5.0); ANION GAP 4 mmol/L (5-15); CALCIUM 8.7 mg/dL (8.5-10.1); CHLORIDE 108 mmol/L (98-107); CREATININE 0.64 mg/dL (0.7-1.3)
[2017-05-12] MEDS ORDERED: ALBUTEROL/IPRATROPIUM 2.5MG/0.5MG, 3 ML ONE ×2 (07:52→20:55)
[2017-05-12] MEDS: ALBUTEROL/IPRATROPIUM 2.5MG/0.5MG, 3 ML NPPB PRN ×3 (07:53→20:58)
[2017-05-12 08:34] LABS: INTERNATIONAL NORMALIZED RATIO 1.48 (0.93-1.1); PROTHROMBIN TIME 15.1 Seconds (9.6-11.5)
[2017-05-12 08:35] VITALS: BP 177/106
[2017-05-12] MEDS: SENNA/DOCUSATE TABLET PO SCH (09:00)
[2017-05-12] MEDS: CARVEDILOL 25 MG TABLET PO SCH ×2 (09:14→20:40)
[2017-05-12] MEDS: DIGOXIN 0.25 MG TABLET PO SCH (09:14)
[2017-05-12] MEDS: THIAMINE 100MG TABLET PO SCH (09:14)
[2017-05-12] MEDS: FOLIC ACID 1 MG TABLET PO SCH (09:14)
[2017-05-12] MEDS ORDERED: LISINOPRIL 10 MG TABLET ONE (09:17)
[2017-05-12] MEDS: LISINOPRIL 10 MG TABLET PO SCH (09:19)
[2017-05-12 12:57] VITALS: BP 137/79
[2017-05-12] MEDS: AZITHROMYCIN 500 MG in SODIUM CHLORIDE 0.9% 250 ML IV SCH (15:49)
[2017-05-12] MEDS ORDERED: WARFARIN 7.5 MG TABLET PO-COUM ONE (18:00)
[2017-05-12 20:17] VITALS: BP 150/98
[2017-05-12] MEDS: ATORVASTATIN 80 MG TABLET PO SCH (20:40)
[2017-05-13 03:30] VITALS: BP 153/103
[2017-05-13 04:53] LABS: BASOPHILS # (AUTO) 0.08 x10^3/uL (0-0.1); BASOPHILS % (AUTO) 1 % (0-1); EOSINOPHILS # (AUTO) 0.08 x10^3/uL (0-0.4); EOSINOPHILS % (AUTO) 1 % (1-7); INTERNATIONAL NORMALIZED RATIO 1.68 (0.93-1.1); LYMPHOCYTES % (AUTO) 17 % (22-44); MD NO; MEAN CORPUSCULAR HEMOGLOBIN 31.8 pg (27.5-34.5); MEAN CORPUSCULAR HGB CONC 32.3 g/dL (33.2-36.2); MEAN CORPUSCULAR VOLUME 98.3 fL (81-97); MEAN PLATELET VOLUME 8.1 fL (7.4-10.4); MONOCYTES # (AUTO) 0.96 x10^3/uL (0.2-0.8); MONOCYTES % (AUTO) 9 % (2-9); NEUTROPHILS # (AUTO) 8.05 x10^3/uL (1.8-6.8); NEUTROPHILS % (AUTO) 73 % (42-75); PLATELET COUNT 301 x10^3/uL (130-400); PROTHROMBIN TIME 17.1 Seconds (9.6-11.5); RED BLOOD COUNT 4.15 x10^6/uL (4.38-5.82); RED CELL DISTRIBUTION WIDTH 16.9 % (9.4-14.8)
[2017-05-13 05:16] LABS: ALANINE AMINOTRANSFERASE 53 U/L (12-78); ALBUMIN 3.1 g/dL (3.4-5.0); ANION GAP 4 mmol/L (5-15); CALCIUM 8.7 mg/dL (8.5-10.1); CHLORIDE 105 mmol/L (98-107); CREATININE 0.73 mg/dL (0.7-1.3)
[2017-05-13 05:18] LABS: ALKALINE PHOSPHATASE 126 U/L (45-117); BILIRUBIN,TOTAL 0.6 mg/dL (0.2-1.0); TOTAL PROTEIN 6.9 g/dL (6.4-8.2)
[2017-05-13] MEDS ORDERED: LABETALOL 5MG/ML, 20ML ONE (05:38)
[2017-05-13] MEDS: ASPIRIN 81 MG TABLET EC PO SCH (05:40)
[2017-05-13] MEDS ORDERED: ALBUTEROL/IPRATROPIUM 2.5MG/0.5MG, 3 ML ONE ×2 (06:21→13:52)
[2017-05-13] MEDS: ALBUTEROL/IPRATROPIUM 2.5MG/0.5MG, 3 ML NPPB PRN ×2 (07:22→20:53)
[2017-05-13] MEDS ORDERED: LISINOPRIL 10 MG TABLET ONE ×2 (08:02→09:01)
[2017-05-13 08:09] VITALS: BP 189/113
[2017-05-13] MEDS: FOLIC ACID 1 MG TABLET PO SCH (08:09)
[2017-05-13] MEDS: THIAMINE 100MG TABLET PO SCH (08:09)
[2017-05-13] MEDS: DIGOXIN 0.25 MG TABLET PO SCH (08:10)
[2017-05-13] MEDS: SENNA/DOCUSATE TABLET PO SCH (08:10)
[2017-05-13] MEDS: CARVEDILOL 25 MG TABLET PO SCH ×2 (08:10→20:32)
[2017-05-13] MEDS: LISINOPRIL 10 MG TABLET PO SCH ×3 (08:10→20:33)
[2017-05-13 08:51] VITALS: BP 183/125
[2017-05-13 10:03] VITALS: BP 134/86
[2017-05-13 14:10] VITALS: BP 120/75
[2017-05-13] MEDS: AZITHROMYCIN 500 MG in SODIUM CHLORIDE 0.9% 250 ML IV SCH (14:12)
[2017-05-13] MEDS ORDERED: WARFARIN 7.5 MG TABLET PO-COUM ONE (18:00)
[2017-05-13 19:21] VITALS: BP 130/84
[2017-05-13] MEDS: ATORVASTATIN 80 MG TABLET PO SCH (20:32)
[2017-05-14 03:20] VITALS: BP 156/95
[2017-05-14 05:35] LABS: INTERNATIONAL NORMALIZED RATIO 1.81 (0.93-1.1); PROTHROMBIN TIME 18.4 Seconds (9.6-11.5)
[2017-05-14] MEDS: ASPIRIN 81 MG TABLET EC PO SCH (05:45)
[2017-05-14 07:42] LABS: ALBUMIN 3.2 g/dL (3.4-5.0); ANION GAP 6 mmol/L (5-15); CALCIUM 8.8 mg/dL (8.5-10.1); CHLORIDE 104 mmol/L (98-107); CREATININE 0.67 mg/dL (0.7-1.3)
[2017-05-14] MEDS: ALBUTEROL/IPRATROPIUM 2.5MG/0.5MG, 3 ML NPPB PRN (08:30)
[2017-05-14] MEDS ORDERED: MAGNESIUM SULFATE PMX 2GM/50ML 50 ML IV ONE (08:30)
[2017-05-14 09:00] VITALS: BP 167/101
[2017-05-14] MEDS: LISINOPRIL 10 MG TABLET PO SCH ×2 (09:00→20:22)
[2017-05-14] MEDS: SENNA/DOCUSATE TABLET PO SCH (09:00)
[2017-05-14] MEDS: THIAMINE 100MG TABLET PO SCH (09:03)
[2017-05-14] MEDS: CARVEDILOL 25 MG TABLET PO SCH ×2 (09:03→20:22)
[2017-05-14] MEDS: DIGOXIN 0.25 MG TABLET PO SCH (09:03)
[2017-05-14] MEDS: FOLIC ACID 1 MG TABLET PO SCH (09:04)
[2017-05-14] MEDS: AMLODIPINE 2.5 MG TABLET PO SCH (10:06)
[2017-05-14 14:15] VITALS: BP 129/82
[2017-05-14] MEDS: AZITHROMYCIN 500 MG in SODIUM CHLORIDE 0.9% 250 ML IV SCH (16:52)
[2017-05-14] MEDS ORDERED: WARFARIN 3 MG TABLET PO-COUM ONE (18:00)
[2017-05-14 18:29] VITALS: BP 136/71
[2017-05-14] MEDS: ALBUTEROL/IPRATROPIUM 2.5MG/0.5MG, 3 ML NPPB SCH (19:54)
[2017-05-14] MEDS: ATORVASTATIN 80 MG TABLET PO SCH (20:22)
[2017-05-15 01:43] VITALS: BP 158/91
[2017-05-15] MEDS: ASPIRIN 81 MG TABLET EC PO SCH (05:33)
[2017-05-15 05:43] LABS: BASOPHILS # (AUTO) 0.04 x10^3/uL (0-0.1); BASOPHILS % (AUTO) 0 % (0-1); EOSINOPHILS # (AUTO) 0.11 x10^3/uL (0-0.4); EOSINOPHILS % (AUTO) 1 % (1-7); LYMPHOCYTES # (AUTO) 2.19 x10^3/uL (1-3.4); LYMPHOCYTES % (AUTO) 18 % (22-44); MD NO; MEAN CORPUSCULAR HEMOGLOBIN 32.1 pg (27.5-34.5); MEAN CORPUSCULAR HGB CONC 32.8 g/dL (33.2-36.2); MEAN CORPUSCULAR VOLUME 97.8 fL (81-97); MEAN PLATELET VOLUME 7.7 fL (7.4-10.4); MONOCYTES # (AUTO) 1.09 x10^3/uL (0.2-0.8); MONOCYTES % (AUTO) 9 % (2-9); NEUTROPHILS # (AUTO) 8.45 x10^3/uL (1.8-6.8); NEUTROPHILS % (AUTO) 71 % (42-75); PLATELET COUNT 331 x10^3/uL (130-400); RED BLOOD COUNT 4.24 x10^6/uL (4.38-5.82); RED CELL DISTRIBUTION WIDTH 16.6 % (9.4-14.8)
[2017-05-15 05:44] LABS: INTERNATIONAL NORMALIZED RATIO 1.91 (0.93-1.1); PROTHROMBIN TIME 19.4 Seconds (9.6-11.5)
[2017-05-15 05:49] LABS: ALBUMIN 3.3 g/dL (3.4-5.0); ANION GAP 8 mmol/L (5-15); CALCIUM 8.9 mg/dL (8.5-10.1); CHLORIDE 104 mmol/L (98-107)
[2017-05-15 05:51] LABS: CREATININE 0.64 mg/dL (0.7-1.3)
[2017-05-15] MEDS: ALBUTEROL/IPRATROPIUM 2.5MG/0.5MG, 3 ML NPPB SCH ×4 (07:05→20:20)
[2017-05-15 07:34] VITALS: BP 177/113
[2017-05-15] MEDS: AMLODIPINE 2.5 MG TABLET PO SCH (08:13)
[2017-05-15] MEDS: THIAMINE 100MG TABLET PO SCH (08:13)
[2017-05-15] MEDS: FOLIC ACID 1 MG TABLET PO SCH (08:13)
[2017-05-15] MEDS: DIGOXIN 0.25 MG TABLET PO SCH (08:14)
[2017-05-15] MEDS: CARVEDILOL 25 MG TABLET PO SCH ×2 (08:14→21:05)
[2017-05-15] MEDS: LISINOPRIL 10 MG TABLET PO SCH ×2 (08:15→21:06)
[2017-05-15] MEDS ORDERED: SENNA/DOCUSATE TABLET ONE (08:20)
[2017-05-15 08:21] VITALS: BP 153/94
[2017-05-15] MEDS: SENNA/DOCUSATE TABLET PO SCH (09:00)
[2017-05-15 13:39] VITALS: BP 108/74
[2017-05-15] MEDS: AZITHROMYCIN 500 MG in SODIUM CHLORIDE 0.9% 250 ML IV SCH (15:41)
[2017-05-15] MEDS ORDERED: WARFARIN 2 MG TABLET PO-COUM ONE (18:00)
[2017-05-15 21:02] VITALS: BP 124/78
[2017-05-15] MEDS: ATORVASTATIN 80 MG TABLET PO SCH (21:06)
[2017-05-16 03:59] VITALS: BP 158/82
[2017-05-16 05:38] LABS: INTERNATIONAL NORMALIZED RATIO 2.38 (0.93-1.1); PROTHROMBIN TIME 24.1 Seconds (9.6-11.5)
[2017-05-16] MEDS: ASPIRIN 81 MG TABLET EC PO SCH (06:14)
[2017-05-16] MEDS: LISINOPRIL 10 MG TABLET PO SCH (06:14)
[2017-05-16] MEDS: ALBUTEROL/IPRATROPIUM 2.5MG/0.5MG, 3 ML NPPB SCH ×3 (07:30→10:54)
[2017-05-16] MEDS ORDERED: PRED10TA PO (09:06)
[2017-05-16] MEDS ORDERED: ASPI-621 PO (09:06)
[2017-05-16] MEDS ORDERED: LISI-167 PO (09:06)
[2017-05-16] MEDS ORDERED: TIOT18CA INH (09:06)
[2017-05-16] MEDS ORDERED: ERGO500017 PO (09:06)
[2017-05-16] MEDS ORDERED: THIA100T6 PO (09:06)
[2017-05-16 09:32] VITALS: BP 153/82
[2017-05-16] MEDS: CARVEDILOL 25 MG TABLET PO SCH (09:34)
[2017-05-16] MEDS: THIAMINE 100MG TABLET PO SCH (09:34)
[2017-05-16] MEDS: AMLODIPINE 2.5 MG TABLET PO SCH (09:34)
[2017-05-16] MEDS: DIGOXIN 0.25 MG TABLET PO SCH (09:34)
[2017-05-16] MEDS: FOLIC ACID 1 MG TABLET PO SCH (09:35)
[2017-05-16] MEDS: SENNA/DOCUSATE TABLET PO SCH (09:35)
[2017-05-16] MEDS ORDERED: CARV-39 PO (09:49)
[2017-05-16 13:02] VITALS: BP 118/75
[2017-05-16] MEDS ORDERED: WARFARIN 3 MG TABLET PO-COUM ONE (18:00)
== END 2017-05-16 13:19 | disposition home or self-care (01) | DRG 191 ==
LOC: ED 12:30 → EDIP 14:17 → 5SO 15:16 → DCLOUNGE 16:10 → UNDODISIN 16:18 → 5SO 17:18 → 4NOR 05-14 10:56
PROVIDERS: ADMIT Hospitalist; ATTEND Hospitalist
DX: J44.1 Chronic obstructive pulmonary disease with (acute) exacerbation (principal); D68.69 Other thrombophilia; I27.20 Pulmonary hypertension, unspecified; I11.0 Hypertensive heart disease with heart failure; E11.65 Type 2 diabetes mellitus with hyperglycemia; I50.32 Chronic diastolic (congestive) heart failure; D64.9 Anemia, unspecified; D72.829 Elevated white blood cell count, unspecified; E55.9 Vitamin D deficiency, unspecified; E78.5 Hyperlipidemia, unspecified; F17.210 Nicotine dependence, cigarettes, uncomplicated; F41.1 Generalized anxiety disorder; I25.10 Atherosclerotic heart disease of native coronary artery without angina pectoris; I48.91 Unspecified atrial fibrillation; Z59.0 Homelessness; Z79.01 Long term (current) use of anticoagulants; Z79.899 Other long term (current) drug therapy; Z91.19 Patient's noncompliance with other medical treatment and regimen
CPT/HCPCS: 36415; 71045; 71046; 80048; 80053; 80162; 81003; 82040; 82306; 83605; 83690; 83735; 83880; 84100; 84439; 84484; 85025; 85610; 85730; 87040; 87070; 87205; 93005; 93306; 94640; 96361; 96374; J0456; J7620; J3475; J7030; J7050; J7512

== ENCOUNTER 2017-05-25 11:38 | Inpatient (IN) | payer MEDICAID ==
[~2017-05-25] VITALS: Ht 185.4 cm; Wt 82.8 kg
[~2017-05-25 11:38] MED LIST changes: +ASPI-621 PO; +PRED10TA PO; +THIA100T6 PO; +TIOT18CA INH
[2017-05-25] MEDS ORDERED: DILTIAZEM 125 MG in DEXTROSE 5% 100 ML IV SCH (12:07)
[2017-05-25] MEDS ORDERED: ASPIRIN 81 MG TABLET CHEW ONE (12:13)
[2017-05-25] MEDS ORDERED: DILTIAZEM 5 MG/ML, 5ML ONE (12:13)
[2017-05-25] MEDS ORDERED: SODIUM CHLORIDE FLUSH 10ML SYR IVF ONE (12:30)
[2017-05-25] MEDS ORDERED: ASPIRIN 81 MG TABLET CHEW PO ONE (12:30)
[2017-05-25] MEDS ORDERED: DILTIAZEM 5 MG/ML, 5ML IV ONE (12:30)
[2017-05-25 13:21] LABS: BASOPHILS # (AUTO) 0.08 x10^3/uL (0-0.1); BASOPHILS % (AUTO) 1 % (0-1); EOSINOPHILS # (AUTO) 0.15 x10^3/uL (0-0.4); EOSINOPHILS % (AUTO) 2 % (1-7); LYMPHOCYTES # (AUTO) 1.99 x10^3/uL (1-3.4); LYMPHOCYTES % (AUTO) 21 % (22-44); MD NO; MEAN CORPUSCULAR HEMOGLOBIN 31.9 pg (27.5-34.5); MEAN CORPUSCULAR HGB CONC 32.4 g/dL (33.2-36.2); MEAN CORPUSCULAR VOLUME 98.3 fL (81-97); MEAN PLATELET VOLUME 8.2 fL (7.4-10.4); MONOCYTES # (AUTO) 0.76 x10^3/uL (0.2-0.8); MONOCYTES % (AUTO) 8 % (2-9); NEUTROPHILS # (AUTO) 6.64 x10^3/uL (1.8-6.8); NEUTROPHILS % (AUTO) 69 % (42-75); PLATELET COUNT 263 x10^3/uL (130-400); RED BLOOD COUNT 4.31 x10^6/uL (4.38-5.82); RED CELL DISTRIBUTION WIDTH 16.9 % (9.4-14.8)
[2017-05-25 13:30] LABS: ALANINE AMINOTRANSFERASE 56 U/L (12-78); ANION GAP 8 mmol/L (5-15); CALCIUM 8.2 mg/dL (8.5-10.1); CHLORIDE 110 mmol/L (98-107); CREATININE 0.67 mg/dL (0.7-1.3); T4 (THYROXINE) 9.4 mcg/dL (4.5-12.1)
[2017-05-25 13:36] LABS: INTERNATIONAL NORMALIZED RATIO 1.17 (0.93-1.1)
[2017-05-25 13:40] LABS: ALKALINE PHOSPHATASE 125 U/L (45-117); BILIRUBIN,TOTAL 0.7 mg/dL (0.2-1.0); THYROID STIMULATING HORMONE 0.967 mIU/L (0.358-3.740); TOTAL PROTEIN 6.2 g/dL (6.4-8.2)
[2017-05-25] MEDS ORDERED: SODIUM CHLORIDE 0.9% 1,000 ML IV ONE (13:58)
[2017-05-25] MEDS ORDERED: SODIUM CHLORIDE FLUSH 10ML SYR IVF PRN (14:00)
[2017-05-25 15:30] VITALS: BP 91/51
[2017-05-25] MEDS: WARFARIN MODERAT DOSE PROTOCOL XX SCH (16:25)
[2017-05-25] MEDS ORDERED: ONDANSETRON ODT 4 MG PO PRN (16:30)
[2017-05-25] MEDS ORDERED: DILTIAZEM 5 MG/ML, 5ML IVPush PRN (16:30)
[2017-05-25] MEDS ORDERED: ERGOCALCIFEROL 50,000 UNIT CAPSULE PO SCH (16:30)
[2017-05-25] MEDS: ENOXAPARIN 40 MG/0.4 ML SQ SCH (16:48)
[2017-05-25] MEDS ORDERED: ALBUTEROL/IPRATROPIUM 2.5MG/0.5MG, 3 ML NPPB PRN (17:00)
[2017-05-25 17:03] VITALS: BP 126/77
[2017-05-25] MEDS ORDERED: WARFARIN 7.5 MG TABLET PO-COUM ONE (18:00)
[2017-05-25 18:10] LABS: TROPONIN I < 0.015 ng/mL (0.000-0.045)
[2017-05-25] MEDS: ALBUTEROL/IPRATROPIUM 2.5MG/0.5MG, 3 ML NPPB SCH (19:20)
[2017-05-25 19:45] VITALS: BP 136/87
[2017-05-25] MEDS: MAGNESIUM OXIDE 400 MG TABLET PO SCH (20:27)
[2017-05-25] MEDS: LISINOPRIL 20 MG TABLET PO SCH (20:28)
[2017-05-25] MEDS: CARVEDILOL 25 MG TABLET PO SCH (20:28)
[2017-05-25] MEDS: ATORVASTATIN 80 MG TABLET PO SCH (20:28)
[2017-05-25 22:49] LABS: TROPONIN I < 0.015 ng/mL (0.000-0.045)
[2017-05-26 03:31] VITALS: BP 135/91
[2017-05-26] MEDS: ASPIRIN 81 MG TABLET EC PO SCH (05:18)
[2017-05-26 05:54] LABS: BASOPHILS # (AUTO) 0.08 x10^3/uL (0-0.1); BASOPHILS % (AUTO) 1 % (0-1); EOSINOPHILS # (AUTO) 0.24 x10^3/uL (0-0.4); EOSINOPHILS % (AUTO) 4 % (1-7); LYMPHOCYTES # (AUTO) 1.67 x10^3/uL (1-3.4); LYMPHOCYTES % (AUTO) 25 % (22-44); MD NO; MEAN CORPUSCULAR HEMOGLOBIN 31.4 pg (27.5-34.5); MEAN CORPUSCULAR HGB CONC 32.3 g/dL (33.2-36.2); MEAN CORPUSCULAR VOLUME 97.3 fL (81-97); MONOCYTES # (AUTO) 0.69 x10^3/uL (0.2-0.8); MONOCYTES % (AUTO) 10 % (2-9); NEUTROPHILS # (AUTO) 3.94 x10^3/uL (1.8-6.8); NEUTROPHILS % (AUTO) 60 % (42-75); PLATELET COUNT 229 x10^3/uL (130-400); RED BLOOD COUNT 3.93 x10^6/uL (4.38-5.82)
[2017-05-26 05:58] LABS: INTERNATIONAL NORMALIZED RATIO 1.21 (0.93-1.1); PROTHROMBIN TIME 12.4 Seconds (9.6-11.5)
[2017-05-26 06:04] LABS: ANION GAP 6 mmol/L (5-15); CALCIUM 8.3 mg/dL (8.5-10.1); CHLORIDE 107 mmol/L (98-107)
[2017-05-26 06:16] LABS: ALANINE AMINOTRANSFERASE 52 U/L (12-78); ALKALINE PHOSPHATASE 132 U/L (45-117); CREATININE 0.67 mg/dL (0.7-1.3); TOTAL PROTEIN 6.1 g/dL (6.4-8.2)
[2017-05-26] MEDS: ALBUTEROL/IPRATROPIUM 2.5MG/0.5MG, 3 ML NPPB SCH ×3 (07:00→19:57)
[2017-05-26] MEDS: MAGNESIUM OXIDE 400 MG TABLET PO SCH ×2 (07:43→20:35)
[2017-05-26] MEDS: SPIRONOLACTONE 25 MG TABLET PO SCH (07:43)
[2017-05-26] MEDS: CARVEDILOL 25 MG TABLET PO SCH ×2 (07:43→20:35)
[2017-05-26] MEDS: LISINOPRIL 20 MG TABLET PO SCH ×2 (07:43→20:35)
[2017-05-26] MEDS: DIGOXIN 0.25 MG TABLET PO SCH (07:43)
[2017-05-26] MEDS: FUROSEMIDE 20 MG TABLET PO SCH (07:43)
[2017-05-26 09:00] VITALS: BP 153/97
[2017-05-26 09:18] VITALS: BP 193/116
[2017-05-26] MEDS: WARFARIN MODERAT DOSE PROTOCOL XX SCH (11:11)
[2017-05-26] MEDS ORDERED: DILTIAZEM 60 MG CAP.ER.12H PO SCH (11:30)
[2017-05-26 11:42] VITALS: BP 136/91
[2017-05-26 15:20] VITALS: BP 121/76
[2017-05-26] MEDS ORDERED: DIGOXIN 0.25 MG/ML, 2ML IVPush ONE (16:00)
[2017-05-26] MEDS: ENOXAPARIN 40 MG/0.4 ML SQ SCH (16:30)
[2017-05-26] MEDS ORDERED: WARFARIN 7.5 MG TABLET PO-COUM ONE (18:00)
[2017-05-26 19:18] VITALS: BP 116/69
[2017-05-26] MEDS: ATORVASTATIN 80 MG TABLET PO SCH (20:35)
[2017-05-27 01:05] VITALS: BP 99/64
[2017-05-27] MEDS: ASPIRIN 81 MG TABLET EC PO SCH (05:59)
[2017-05-27 06:44] VITALS: BP 114/72
[2017-05-27] MEDS: ALBUTEROL/IPRATROPIUM 2.5MG/0.5MG, 3 ML NPPB SCH ×3 (06:49→19:16)
[2017-05-27] MEDS: CARVEDILOL 25 MG TABLET PO SCH ×2 (07:09→22:12)
[2017-05-27] MEDS: LISINOPRIL 20 MG TABLET PO SCH ×2 (07:09→22:11)
[2017-05-27] MEDS: MAGNESIUM OXIDE 400 MG TABLET PO SCH ×2 (07:09→22:12)
[2017-05-27] MEDS: DIGOXIN 0.25 MG TABLET PO SCH (07:09)
[2017-05-27] MEDS: FUROSEMIDE 20 MG TABLET PO SCH (07:09)
[2017-05-27] MEDS: SPIRONOLACTONE 25 MG TABLET PO SCH (07:10)
[2017-05-27 10:07] LABS: INTERNATIONAL NORMALIZED RATIO 1.15 (0.93-1.1); PROTHROMBIN TIME 11.9 Seconds (9.6-11.5)
[2017-05-27] MEDS: WARFARIN MODERAT DOSE PROTOCOL XX SCH (10:26)
[2017-05-27] MEDS: DILTIAZEM 30 MG TABLET PO SCH ×3 (10:26→22:12)
[2017-05-27 12:33] VITALS: BP 124/76
[2017-05-27] MEDS: ENOXAPARIN 40 MG/0.4 ML SQ SCH (16:45)
[2017-05-27] MEDS ORDERED: WARFARIN 5 MG TABLET PO-COUM ONE (18:00)
[2017-05-27 18:30] VITALS: BP 118/72
[2017-05-27] MEDS: APIXABAN 5 MG TABLET PO SCH (22:11)
[2017-05-27] MEDS: ATORVASTATIN 80 MG TABLET PO SCH (22:12)
[2017-05-28 01:42] VITALS: BP 100/50
[2017-05-28 05:50] VITALS: BP 110/52
[2017-05-28] MEDS: ASPIRIN 81 MG TABLET EC PO SCH (05:52)
[2017-05-28] MEDS: DILTIAZEM 30 MG TABLET PO SCH ×2 (05:52→10:46)
[2017-05-28 07:35] VITALS: BP 135/86
[2017-05-28] MEDS: ALBUTEROL/IPRATROPIUM 2.5MG/0.5MG, 3 ML NPPB SCH (08:10)
[2017-05-28] MEDS: MAGNESIUM OXIDE 400 MG TABLET PO SCH (08:55)
[2017-05-28] MEDS: SPIRONOLACTONE 25 MG TABLET PO SCH (08:55)
[2017-05-28] MEDS: DIGOXIN 0.25 MG TABLET PO SCH (08:55)
[2017-05-28] MEDS: LISINOPRIL 20 MG TABLET PO SCH (08:55)
[2017-05-28] MEDS: CARVEDILOL 25 MG TABLET PO SCH (08:56)
[2017-05-28] MEDS: APIXABAN 5 MG TABLET PO SCH (08:56)
[2017-05-28] MEDS: FUROSEMIDE 20 MG TABLET PO SCH (08:56)
[2017-05-28 09:00] LABS: INTERNATIONAL NORMALIZED RATIO 1.22 (0.93-1.1); PROTHROMBIN TIME 12.6 Seconds (9.6-11.5)
[2017-05-28] MEDS ORDERED: DILT-8 PO (11:26)
[2017-05-28] MEDS ORDERED: APIX5TAB PO (11:26)
== END 2017-05-28 12:26 | disposition home or self-care (01) | DRG 309 ==
LOC: ED 13:57 → EDIP 13:58 → 5SO 13:58 → OBSVTOIN 13:58 → INTOOBSV 13:58 → UNDOADMOB 13:58 → ED 14:13 → 5SO 15:22 → EDIP 15:22 → 5SO 16:15 → UNDOADMOB 16:15 → 5SO 05-27 12:58 → UNDOADMOB 05-27 12:58 → INTOOBSV 05-28 11:13 → OBSVTOIN 05-28 11:13 → DCLOUNGE 05-28 12:11
PROVIDERS: ADMIT Internal Medicine; ATTEND Internal Medicine
DX: I48.0 Paroxysmal atrial fibrillation (principal); D68.69 Other thrombophilia; I27.20 Pulmonary hypertension, unspecified; I11.0 Hypertensive heart disease with heart failure; I08.1 Rheumatic disorders of both mitral and tricuspid valves; I50.32 Chronic diastolic (congestive) heart failure; E55.9 Vitamin D deficiency, unspecified; E78.5 Hyperlipidemia, unspecified; F17.210 Nicotine dependence, cigarettes, uncomplicated; R73.9 Hyperglycemia, unspecified; R74.8 Abnormal levels of other serum enzymes; J44.9 Chronic obstructive pulmonary disease, unspecified; Z79.01 Long term (current) use of anticoagulants; Z59.0 Homelessness; Z79.82 Long term (current) use of aspirin; Z91.19 Patient's noncompliance with other medical treatment and regimen
CPT/HCPCS: 36415; 71045; 80053; 80162; 83880; 84436; 84443; 84484; 85025; 85610; 85730; 93005; 94640; 96365; 96366; 96375; J1650; J7620; J1160

== ENCOUNTER 2017-06-13 08:57 | Emergency (ER) | payer MEDICAID ==
[~2017-06-13] VITALS: Ht 185.4 cm; Wt 81.6 kg
[~2017-06-13 08:57] MED LIST changes: +APIX5TAB PO; +DILT-8 PO; +WARF-36 PO; -WARF5TAB7 PO
[2017-06-13 09:03] VITALS: BP 96/59
[2017-06-13] MEDS ORDERED: WARF-36 PO (09:41)
== END 2017-06-13 10:15 | disposition home or self-care (01) ==
LOC: ED 09:29
DX: J44.1 Chronic obstructive pulmonary disease with (acute) exacerbation (principal); E11.9 Type 2 diabetes mellitus without complications; E78.5 Hyperlipidemia, unspecified; I50.9 Heart failure, unspecified; I48.91 Unspecified atrial fibrillation; I11.0 Hypertensive heart disease with heart failure; I48.92 Unspecified atrial flutter
CPT/HCPCS: 71045; 93005; 99284

== ENCOUNTER 2018-03-28 17:24 | Inpatient (IN) | payer MEDICAID ==
[~2018-03-28] VITALS: Ht 185.4 cm; Wt 86.0 kg
[~2018-03-28 17:24] MED LIST changes: -ASPI-621 PO; +ASPI81TA45 PO; -MAGN64TA9 PO; +MAGNESIUM DR64 MG PO; -SPIR25TA3 PO; +SPIR25TA5 PO; -THIA100T6 PO; +THIA100T67 PO
[2018-03-28 18:08] LABS: BASOPHILS # (AUTO) 0.03 x10^3/uL (0-0.1); BASOPHILS % (AUTO) 0 % (0-1); EOSINOPHILS # (AUTO) 0.08 x10^3/uL (0-0.4); EOSINOPHILS % (AUTO) 1 % (1-7); LYMPHOCYTES # (AUTO) 2.29 x10^3/uL (1-3.4); LYMPHOCYTES % (AUTO) 22 % (22-44); MD NO; MEAN CORPUSCULAR HEMOGLOBIN 34.1 pg (27.5-34.5); MEAN CORPUSCULAR HGB CONC 33.8 g/dL (33.2-36.2); MEAN CORPUSCULAR VOLUME 100.9 fL (81-97); MEAN PLATELET VOLUME 7.3 fL (7.4-10.4); MONOCYTES % (AUTO) 9 % (2-9); NEUTROPHILS # (AUTO) 7.22 x10^3/uL (1.8-6.8); NEUTROPHILS % (AUTO) 68 % (42-75); PLATELET COUNT 405 x10^3/uL (130-400); RED BLOOD COUNT 4.36 x10^6/uL (4.38-5.82); RED CELL DISTRIBUTION WIDTH 14.1 % (9.4-14.8)
[2018-03-28 18:20] LABS: ALBUMIN 4.2 g/dL (3.4-5.0); ANION GAP 8 mmol/L (5-15); CALCIUM 9.3 mg/dL (8.5-10.1); CHLORIDE 103 mmol/L (98-107)
[2018-03-28 18:27] LABS: ALANINE AMINOTRANSFERASE 48 U/L (12-78); ALKALINE PHOSPHATASE 124 U/L (45-117); BILIRUBIN,TOTAL 2.1 mg/dL (0.2-1.0); CREATININE 0.86 mg/dL (0.7-1.3); TROPONIN I 0.015 ng/mL (0.000-0.045)
--- NOTE | 2018-03-28 18:52 | NUR ---
Pt ambulatory to rm 11 from [facility]
[2018-03-28] MEDS ORDERED: DILTIAZEM 125 MG in DEXTROSE 5% 100 ML IV SCH ×2 (19:15→23:00)
[2018-03-28] MEDS ORDERED: ENOXAPARIN 80 MG/0.8 ML SQ ONE (19:30)
[2018-03-28] MEDS ORDERED: DILTIAZEM 5 MG/ML, 5ML IV ONE (19:30)
[2018-03-28] MEDS ORDERED: SODIUM CHLORIDE 0.9% 1,000ML IVBOLUS ONE (19:30)
[2018-03-28] MEDS ORDERED: DILTIAZEM 5 MG/ML, 5ML ONE (19:40)
--- NOTE | 2018-03-28 19:48 | NUR ---
IV STARTED AND PT MEDICATED ORDERED.
[2018-03-28] MEDS ORDERED: NS + 20MEQ KCL 1,000 ML IV SCH (20:47)
[2018-03-28] MEDS ORDERED: LISINOPRIL 10 MG TABLET PO SCH (21:00)
[2018-03-28] MEDS ORDERED: ONDANSETRON 2MG/ML, 2ML IVPush PRN (21:00)
[2018-03-28] MEDS ORDERED: NITROGLYCERIN 0.4 MG BOTTLE (25 TABS) SL PRN (21:00)
[2018-03-28] MEDS ORDERED: POLYETHYLENE GLYCOL 17 GM PACKET PO PRN (21:00)
[2018-03-28] MEDS ORDERED: morphine SULFATE 10 MG/ML, 1ML IVPush PRN (21:00)
[2018-03-28] MEDS ORDERED: DOCUSATE 100 MG CAPSULE PO PRN (21:00)
[2018-03-28] MEDS ORDERED: ACETAMINOPHEN 325 MG TABLET PO PRN (21:00)
[2018-03-28] MEDS ORDERED: NITROGLYCERIN 0.4 MG/SPRAY SL PRN (21:00)
--- NOTE | 2018-03-28 21:23 | NUR ---
HR IMPROVED AND IV MEDS STILL RUNNING ORDERED.
[2018-03-28 21:24] LABS: INTERNATIONAL NORMALIZED RATIO 1.25 (0.93-1.1); PROTHROMBIN TIME 13.1 Seconds (9.6-11.5)
--- NOTE | 2018-03-28 21:44 | NUR ---
report called to floor pt reADY FOR TRANSPORT.
[2018-03-28] MEDS ORDERED: WARFARIN 5 MG TABLET PO-COUM ONE (22:32)
[2018-03-28 22:59] VITALS: BP 147/85
[2018-03-28] MEDS: MAGNESIUM OXIDE 400 MG TABLET PO SCH (23:16)
[2018-03-28] MEDS: CARVEDILOL 25 MG TABLET PO SCH (23:16)
[2018-03-28] MEDS: ATORVASTATIN 80 MG TABLET PO SCH (23:16)
[2018-03-28] MEDS: ALBUTEROL SULFATE 2.5 MG/3 ML NPPB PRN (23:50)
[2018-03-29] VITALS (7 sets, daily range): BP systolic 70–107; BP diastolic 37–71
[2018-03-29] MEDS ORDERED: WARFARIN 5 MG TABLET PO-COUM ONE (01:00)
[2018-03-29] MEDS: ASPIRIN 81 MG TABLET EC PO SCH (06:00)
[2018-03-29] MEDS: CARVEDILOL 25 MG TABLET PO SCH (06:00)
[2018-03-29 06:21] LABS: INTERNATIONAL NORMALIZED RATIO 1.21 (0.93-1.1); PROTHROMBIN TIME 12.7 Seconds (9.6-11.5)
[2018-03-29 07:24] LABS: BASOPHILS # (AUTO) 0.02 x10^3/uL (0-0.1); BASOPHILS % (AUTO) 0 % (0-1); EOSINOPHILS # (AUTO) 0.19 x10^3/uL (0-0.4); EOSINOPHILS % (AUTO) 3 % (1-7); LYMPHOCYTES # (AUTO) 1.88 x10^3/uL (1-3.4); LYMPHOCYTES % (AUTO) 27 % (22-44); MD NO; MEAN CORPUSCULAR HEMOGLOBIN 33.2 pg (27.5-34.5); MEAN CORPUSCULAR HGB CONC 33.1 g/dL (33.2-36.2); MEAN CORPUSCULAR VOLUME 100.4 fL (81-97); MEAN PLATELET VOLUME 7.6 fL (7.4-10.4); MONOCYTES # (AUTO) 0.72 x10^3/uL (0.2-0.8); MONOCYTES % (AUTO) 10 % (2-9); NEUTROPHILS # (AUTO) 4.28 x10^3/uL (1.8-6.8); NEUTROPHILS % (AUTO) 60 % (42-75); PLATELET COUNT 296 x10^3/uL (130-400); RED BLOOD COUNT 3.65 x10^6/uL (4.38-5.82); RED CELL DISTRIBUTION WIDTH 13.9 % (9.4-14.8)
[2018-03-29 07:48] LABS: ALANINE AMINOTRANSFERASE 35 U/L (12-78); ALBUMIN 3.3 g/dL (3.4-5.0); ANION GAP 11 mmol/L (5-15); CALCIUM 8.3 mg/dL (8.5-10.1); CHLORIDE 106 mmol/L (98-107)
[2018-03-29 08:16] LABS: ALKALINE PHOSPHATASE 98 U/L (45-117); BILIRUBIN,TOTAL 2.3 mg/dL (0.2-1.0); CREATININE 0.73 mg/dL (0.7-1.3); FOLATE LEVEL 11.9 ng/mL (3.1-17.5); TOTAL PROTEIN 5.9 g/dL (6.4-8.2)
[2018-03-29 08:43] LABS: FREE T4 (FREE THYROXINE) 1.55 ng/dL (0.76-1.46)
[2018-03-29] MEDS ORDERED: SODIUM CHLORIDE 0.9%, 500ML IVBOLUS ONE (09:00)
[2018-03-29] MEDS: DIGOXIN 0.25 MG TABLET PO SCH (09:10)
[2018-03-29] MEDS: MAGNESIUM OXIDE 400 MG TABLET PO SCH ×2 (09:10→21:13)
[2018-03-29] MEDS: THIAMINE 100MG TABLET PO SCH (09:11)
[2018-03-29] MEDS: SENNA/DOCUSATE TABLET PO SCH (09:11)
[2018-03-29] MEDS: SPIRONOLACTONE 25 MG TABLET PO SCH (09:11)
[2018-03-29] MEDS: DILTIAZEM 120 MG CAP.ER.24H PO SCH (09:11)
[2018-03-29] MEDS: LISINOPRIL 20 MG TABLET PO SCH ×2 (09:11→21:13)
[2018-03-29] MEDS ORDERED: ERGOCALCIFEROL 50,000 UNIT CAPSULE PO SCH (13:00)
[2018-03-29] MEDS: SODIUM CHLORIDE 0.9% 1,000 ML IV SCH (14:14)
[2018-03-29] MEDS ORDERED: LISI5TAB7 PO (15:25)
[2018-03-29] MEDS ORDERED: ATOR40TA78 PO (15:25)
[2018-03-29] MEDS ORDERED: DILT300C32 PO (15:25)
[2018-03-29] MEDS ORDERED: FOLI-17 PO (15:25)
[2018-03-29] MEDS ORDERED: CARV12.543 PO (15:25)
[2018-03-29] MEDS: CARVEDILOL 6.25 MG TABLET PO SCH (17:28)
[2018-03-29] MEDS ORDERED: WARFARIN 7.5 MG TABLET PO-COUM ONE (18:00)
[2018-03-29] MEDS: ALBUTEROL SULFATE 2.5 MG/3 ML NPPB PRN (19:42)
[2018-03-29] MEDS: ATORVASTATIN 80 MG TABLET PO SCH (21:12)
[2018-03-30 00:17] VITALS: BP 112/72
[2018-03-30] MEDS: SODIUM CHLORIDE 0.9% 1,000 ML IV SCH (00:17)
[2018-03-30] MEDS: CARVEDILOL 6.25 MG TABLET PO SCH ×2 (05:17→17:54)
[2018-03-30] MEDS: ASPIRIN 81 MG TABLET EC PO SCH (05:17)
[2018-03-30 05:38] LABS: BASOPHILS # (AUTO) 0.03 x10^3/uL (0-0.1); BASOPHILS % (AUTO) 0 % (0-1); EOSINOPHILS # (AUTO) 0.31 x10^3/uL (0-0.4); EOSINOPHILS % (AUTO) 4 % (1-7); LYMPHOCYTES # (AUTO) 1.46 x10^3/uL (1-3.4); LYMPHOCYTES % (AUTO) 21 % (22-44); MD NO; MEAN CORPUSCULAR HEMOGLOBIN 33.7 pg (27.5-34.5); MEAN CORPUSCULAR HGB CONC 33.2 g/dL (33.2-36.2); MEAN CORPUSCULAR VOLUME 101.5 fL (81-97); MEAN PLATELET VOLUME 7.2 fL (7.4-10.4); MONOCYTES # (AUTO) 0.73 x10^3/uL (0.2-0.8); MONOCYTES % (AUTO) 10 % (2-9); NEUTROPHILS # (AUTO) 4.57 x10^3/uL (1.8-6.8); NEUTROPHILS % (AUTO) 64 % (42-75); PLATELET COUNT 289 x10^3/uL (130-400); RED BLOOD COUNT 3.58 x10^6/uL (4.38-5.82); RED CELL DISTRIBUTION WIDTH 13.8 % (9.4-14.8)
[2018-03-30 05:43] LABS: INTERNATIONAL NORMALIZED RATIO 1.43 (0.93-1.1)
[2018-03-30 05:47] LABS: ANION GAP 6 mmol/L (5-15); CALCIUM 8.8 mg/dL (8.5-10.1); CHLORIDE 107 mmol/L (98-107); CREATININE 0.59 mg/dL (0.7-1.3)
[2018-03-30 07:34] VITALS: BP 116/75
[2018-03-30] MEDS: SENNA/DOCUSATE TABLET PO SCH (08:13)
[2018-03-30] MEDS: SPIRONOLACTONE 25 MG TABLET PO SCH (08:13)
[2018-03-30] MEDS: DIGOXIN 0.25 MG TABLET PO SCH (08:13)
[2018-03-30] MEDS: DILTIAZEM 120 MG CAP.ER.24H PO SCH (08:14)
[2018-03-30] MEDS: MAGNESIUM OXIDE 400 MG TABLET PO SCH ×2 (08:14→21:00)
[2018-03-30] MEDS: LISINOPRIL 20 MG TABLET PO SCH ×2 (08:14→21:01)
[2018-03-30] MEDS: THIAMINE 100MG TABLET PO SCH (08:14)
[2018-03-30] MEDS: ALBUTEROL SULFATE 2.5 MG/3 ML NPPB PRN ×2 (09:00→20:05)
[2018-03-30] MEDS: METHIMAZOLE 5 MG TAB PO SCH (13:10)
[2018-03-30 14:17] VITALS: BP 119/93
[2018-03-30] MEDS ORDERED: WARFARIN 7.5 MG TABLET PO-COUM ONE (18:00)
[2018-03-30 20:36] VITALS: BP 94/65
[2018-03-30] MEDS: ATORVASTATIN 80 MG TABLET PO SCH (21:00)
[2018-03-30 21:02] VITALS: BP 108/70
[2018-03-31] VITALS (9 sets, daily range): BP systolic 100–125; BP diastolic 63–81
[2018-03-31] MEDS: ASPIRIN 81 MG TABLET EC PO SCH (05:29)
[2018-03-31] MEDS: CARVEDILOL 6.25 MG TABLET PO SCH ×2 (05:29→17:59)
[2018-03-31 06:01] LABS: INTERNATIONAL NORMALIZED RATIO 1.65 (0.93-1.1); PROTHROMBIN TIME 17.2 Seconds (9.6-11.5)
[2018-03-31 06:10] LABS: CHLORIDE 103 mmol/L (98-107)
[2018-03-31 06:37] LABS: ALANINE AMINOTRANSFERASE 30 U/L (12-78); ALBUMIN 3.3 g/dL (3.4-5.0); ALKALINE PHOSPHATASE 95 U/L (45-117); ANION GAP 7 mmol/L (5-15); BILIRUBIN,TOTAL 0.7 mg/dL (0.2-1.0); CALCIUM 8.7 mg/dL (8.5-10.1); CREATININE 0.68 mg/dL (0.7-1.3); TOTAL PROTEIN 6.4 g/dL (6.4-8.2)
[2018-03-31] MEDS: DIGOXIN 0.25 MG TABLET PO SCH (10:09)
[2018-03-31] MEDS: DILTIAZEM 120 MG CAP.ER.24H PO SCH (10:09)
[2018-03-31] MEDS: THIAMINE 100MG TABLET PO SCH (10:09)
[2018-03-31] MEDS: MAGNESIUM OXIDE 400 MG TABLET PO SCH ×2 (10:09→20:52)
[2018-03-31] MEDS: METHIMAZOLE 5 MG TAB PO SCH (10:09)
[2018-03-31] MEDS: LISINOPRIL 20 MG TABLET PO SCH ×2 (10:09→20:52)
[2018-03-31] MEDS: SENNA/DOCUSATE TABLET PO SCH (10:10)
[2018-03-31] MEDS: SPIRONOLACTONE 25 MG TABLET PO SCH (10:12)
[2018-03-31] MEDS: ALBUTEROL SULFATE 2.5 MG/3 ML NPPB PRN ×2 (11:25→17:05)
[2018-03-31] MEDS ORDERED: SODIUM CHLORIDE 0.9% 1,000 ML IV SCH (12:00)
[2018-03-31] MEDS: ALBUTEROL SULFATE 2.5 MG/3 ML NPPB SCH ×2 (18:00→22:00)
[2018-03-31] MEDS ORDERED: WARFARIN 7.5 MG TABLET PO-COUM ONE (18:00)
[2018-03-31] MEDS: ATORVASTATIN 80 MG TABLET PO SCH (20:51)
[2018-04-01] VITALS (9 sets, daily range): BP systolic 80–118; BP diastolic 49–87
[2018-04-01] MEDS: CARVEDILOL 6.25 MG TABLET PO SCH (05:56)
[2018-04-01] MEDS: ASPIRIN 81 MG TABLET EC PO SCH (05:56)
[2018-04-01 06:08] LABS: INTERNATIONAL NORMALIZED RATIO 1.7 (0.93-1.1); PROTHROMBIN TIME 17.7 Seconds (9.6-11.5)
[2018-04-01] MEDS: ALBUTEROL SULFATE 2.5 MG/3 ML NPPB SCH ×4 (08:35→20:10)
[2018-04-01] MEDS: METHIMAZOLE 5 MG TAB PO SCH (08:47)
[2018-04-01] MEDS: DILTIAZEM 120 MG CAP.ER.24H PO SCH (08:47)
[2018-04-01] MEDS: THIAMINE 100MG TABLET PO SCH (08:47)
[2018-04-01] MEDS: SENNA/DOCUSATE TABLET PO SCH (08:47)
[2018-04-01] MEDS: DIGOXIN 0.25 MG TABLET PO SCH (08:47)
[2018-04-01] MEDS: MAGNESIUM OXIDE 400 MG TABLET PO SCH ×2 (08:47→20:46)
[2018-04-01] MEDS: SPIRONOLACTONE 25 MG TABLET PO SCH (08:48)
[2018-04-01] MEDS ORDERED: SODIUM CHLORIDE 0.9% 1,000 ML IV SCH (09:00)
[2018-04-01] MEDS: CARVEDILOL 3.125 MG TABLET PO SCH (16:58)
[2018-04-01] MEDS ORDERED: WARFARIN 7.5 MG TABLET PO-COUM ONE (18:00)
[2018-04-01] MEDS: ATORVASTATIN 80 MG TABLET PO SCH (20:45)
[2018-04-02 00:31] VITALS: BP 106/60
[2018-04-02] MEDS: ALBUTEROL SULFATE 2.5 MG/3 ML NPPB PRN (02:01)
[2018-04-02 05:49] LABS: INTERNATIONAL NORMALIZED RATIO 1.74 (0.93-1.1); PROTHROMBIN TIME 18.1 Seconds (9.6-11.5)
[2018-04-02 06:02] VITALS: BP 115/73
[2018-04-02] MEDS: CARVEDILOL 3.125 MG TABLET PO SCH (06:04)
[2018-04-02] MEDS: ASPIRIN 81 MG TABLET EC PO SCH (06:04)
[2018-04-02 07:07] VITALS: BP 117/69
[2018-04-02] MEDS: ALBUTEROL SULFATE 2.5 MG/3 ML NPPB SCH ×3 (07:35→14:16)
[2018-04-02] MEDS ORDERED: CARV3.1212 PO (08:50)
[2018-04-02] MEDS ORDERED: ATOR-2 PO (08:50)
[2018-04-02] MEDS ORDERED: SPIR25TA PO (08:50)
[2018-04-02] MEDS ORDERED: DILT120C9 PO (08:50)
[2018-04-02] MEDS: MAGNESIUM OXIDE 400 MG TABLET PO SCH (08:58)
[2018-04-02] MEDS: METHIMAZOLE 5 MG TAB PO SCH (08:58)
[2018-04-02] MEDS: THIAMINE 100MG TABLET PO SCH (08:58)
[2018-04-02] MEDS: DILTIAZEM 120 MG CAP.ER.24H PO SCH (08:58)
[2018-04-02] MEDS ORDERED: METH5TAB6 PO (08:59)
[2018-04-02] MEDS: SENNA/DOCUSATE TABLET PO SCH (09:00)
[2018-04-02] MEDS ORDERED: SPIRONOLACTONE 25 MG TABLET PO SCH (09:00)
[2018-04-02] MEDS ORDERED: DIGOXIN 0.25 MG TABLET PO SCH (09:00)
[2018-04-02 09:21] VITALS: BP_SYST 121; BP_SYST 81; BP_DIAS 51; BP_DIAS 54; BP_DIAS 76
== END 2018-04-02 15:03 | disposition home or self-care (01) | DRG 309 ==
LOC: SUATTDRO 20:29 → ED 21:34 → 5SO 22:19 → 4WST 04-01 17:45 → 5SO 04-01 17:46 → 4WST 04-01 18:51
PROVIDERS: ADMIT Family Medicine; ATTEND Family Medicine
DX: I48.2 Chronic atrial fibrillation (principal); D68.69 Other thrombophilia; I50.32 Chronic diastolic (congestive) heart failure; D75.89 Other specified diseases of blood and blood-forming organs; E55.9 Vitamin D deficiency, unspecified; E78.5 Hyperlipidemia, unspecified; I11.0 Hypertensive heart disease with heart failure; R07.9 Chest pain, unspecified; E05.90 Thyrotoxicosis, unspecified without thyrotoxic crisis or storm; I95.1 Orthostatic hypotension; J44.9 Chronic obstructive pulmonary disease, unspecified; Z59.0 Homelessness; Z79.01 Long term (current) use of anticoagulants; Z87.891 Personal history of nicotine dependence; Z91.14 Patient's other noncompliance with medication regimen; Z91.19 Patient's noncompliance with other medical treatment and regimen; Z91.09 Other allergy status, other than to drugs and biological substances
CPT/HCPCS: 36415; 99285; J7613; 71045; 80048; 80053; 80162; 82040; 82607; 82746; 83880; 84439; 84443; 84481; 84484; 85025; 85610; 93005; 93306; 94640; 96374; G0378; J1650; J7030; J7040